=== PATIENT | female | born 1950 | race Caucasian/White ===

== ENCOUNTER → 2021-09-17 02:00 | Outpatient (CLI) | payer MEDICARE, OTHER, SELFPAY ==
--- NOTE | 2021-09-17 10:46 | DI.CT_ITS ---
Exam(s) CT NECK WO EXAM: CT NECK WO CLINICAL HISTORY: left recurring obstr. parotitis - ? stone.neck swelling,sialoadenitis,r22.1. TECHNIQUE: Imaging Protocol: Axial computed tomography images with coronal and sagittal reformatted images were created and reviewed CONTRAST MATERIAL: Noncontrast COMPARISON: No exams were available for comparison FINDINGS: A marker was placed over the area of patient swelling on the left side of the neck common, overlying the left parotid gland.. Parotids/submandibular/thyroid gland: Normal. No parotid mass, fluid colle ction or stones seen. No calcifications are visible along the expected course of the parotid duct. Lymphadenopathy: There is scattered lymph nodes seen along the level one to level three all measurin g less than 8 mm in short axis diameter which are physiologic in nature. Carotids/Jugular: Calcification of both common carotid bulbs. Soft tissues: The floor the mouth is partially obscured by dental artifact.. The epiglottis and voc al cords are within normal limits. Images through both lung apices are unremarkable. Visualized portions of the brain, orbits and sinuses are unremarkable. Bones: Extensive degenerative changes. IMPRESSION: Normal appearing parotid glands. No evidence sialoadenitis. RADIATION DOSE DELIVERED: 645.96mGy.cm Total DLP DATA REPOSITORY: All CT scans at this facility are submitted to the National Radiology Data Registry (NRDR) Dose Index Registry (DIR) with the [employer] ([employer]). RADIATION OPTIMIZATION: All CT scans at this facility use at least one of these dose optimization te chniques: automated exposure control; mA and/or kV adjustment per patient size (includes targeted exa ms where dose is matched to clinical indication); or iterative reconstruction.
== END ==
PROVIDERS: PCP Family Medicine; Visit Provider Otolaryngology
DX: R22.1 Localized swelling, mass and lump, neck (principal); K11.23 Chronic sialoadenitis
CPT/HCPCS: 70490